=== PATIENT | female | born 1950 | race Caucasian/White ===

== ENCOUNTER 2018-11-10 12:48 | Emergency (ER) | payer OTHER, MEDICARE, MEDICAID ==
[2018-11-10 13:06] VITALS: BP 124/39; PULSE 75
--- NOTE | 2018-11-10 13:22 | EDM.PDOC ---
ED HPI GENERAL MEDICAL PROBLEM - General Chief Complaint: Flank Pain Stated Complaint: RT SIDE RIB PAIN Time Seen by Provider: 11/10/18 13:17 Source of Information: Reports: Patient History Limitations: Reports: No Limitations - History of Present Illness INITIAL COMMENTS - FREE TEXT/NARRATIVE: pt was vacuming a car and twisted into a position and she developed acute pain in her rt rib cage area. Onset: Other (yesterday. the pt was vacuuing a car out and heard something pop in her rib cage. ) Duration: Hour(s): Location: Reports: Chest, Other (pt has pain in her rt ant chest. ) Associated Symptoms: Reports: Chest Pain, Other (pain when she moves and deep breathes. ) Right Pain Score (Numeric/FACES): 6 - Related Data Allergies Allergy/AdvReac Type Severity Reaction Status Date / Time Iodinated Contrast Media Allergy Anaphylactic Verified 11/10/18 13:18 [Iodinated Contrast Media - Shock IV Dye] pentazocine lactate Allergy Rash Verified 11/10/18 13:18 [From [place]win] Tetracyclines Allergy Difficulty Verified 11/10/18 13:18 Breathing Home Meds: Home Meds FLUoxetine HCl [Prozac] 40 mg PO BID 05/29/15 [History] Vitamin B Complex [Complex B-100] 1 tab PO DAILY 05/29/15 [History] Loratadine [Claritin] 10 mg PO DAILY 11/10/18 [History] Multivit with Calcium,Iron,Min [Essential Daily] 1 tab PO DAILY 11/10/18 [ History] 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: Musculoskeletal History: Reports: Back Pain, Chronic Neurological History: Reports: Migraines - Past Surgical History GI Surgical History: Reports: Appendectomy, Bariatric Procedure Female Surgical History: Reports: Breast Biopsy, Hysterectomy Musculoskeletal Surgical History: Reports: Carpal Tunnel ED ROS GENERAL - Review of Systems Review Of Systems: See Below Constitutional: Reports: No Symptoms HEENT: Reports: No Symptoms Respiratory: Reports: Pleuritic Chest Pain Cardiovascular: Reports: No Symptoms Endocrine: Reports: No Symptoms GI/Abdominal: Reports: No Symptoms : Reports: No Symptoms Musculoskeletal: Reports: Other (pain in rt ant rib cage. ) Skin: Reports: No Symptoms ED EXAM,LOWER BACK PAIN/INJURY - Physical Exam Exam: See Below Text/Narrative:: pt arrived with pain in her ant rt rib cage at the level of the 6th or 7th rib. Exam Limited By: No Limitations General Appearance: Alert, Anxious, Moderate Distress Ears: Normal TMs Nose: Normal Inspection Throat/Mouth: Normal Inspection Head: Atraumatic Neck: Normal Inspection Respiratory/Chest: Other (pt has pain with deep breathing. She is tender to palpate the mid ant chest on the rt. ) Cardiovascular: Regular Rate, Rhythm GI/Abdominal: Soft, Non-Tender (Female) Exam: Deferred Rectal (Female) Exam: Deferred Back Exam: Normal Inspection Extremities: Normal Inspection Neurological: Alert, Oriented x 3 Course - Vital Signs Last Recorded V/S: Last Vital Signs Temp 35.6 C 11/10/18 13:16 Pulse 75 11/10/18 13:16 Resp 13 11/10/18 13:16 BP 124/39 L 11/10/18 13:16 Pulse Ox 95 11/10/18 13:16 - Orders/Labs/Meds Orders: Active Orders 24 hr Category Date Time Status Ribs 2V w Chest Rt [CR] Stat Exams 11/10/18 13:33 Taken Meds: Medications Discontinued Medications Generic Name Dose Route Start Last Admin Trade Name Freq PRN Reason Stop Dose Admin Hydrocodone Bitart/Acetaminophen 1 tab 11/10/18 13:35 11/10/18 14:00 [place] 325-5 Mg PO 11/10/18 13:36 1 tab ONETIME ONE Administration Ketorolac Tromethamine 60 mg 11/10/18 13:35 Toradol IM 11/10/18 13:36 ONETIME ONE - Re-Assessments/Exams Free Text/Narrative Re-Assessment/Exam: 11/10/18 13:55 chest xray and rib detail was obtained which shows a possible hairline fracture of the 6th rib-- no displacement. Departure - Departure Time of Disposition: 13:56 Disposition: Home, Self-Care 01 Condition: Fair Clinical Impression: Rib fracture - Discharge Information Referrals: Kathleen Paz MD [Primary Care Provider] - Forms: ED Department Discharge Care Plan Goals: cool pack to area, motrin 600mg tid, norco 5/325 q6h prn for pain--severe,#10 encourage deep breathing avoid heavy lifting or pulling. - My Orders Last 24 Hours: My Active Orders 11/10/18 13:33 Ribs 2V w Chest Rt [CR] Stat - Assessment/Plan Last 24 Hours: My Active Orders 11/10/18 13:33 Ribs 2V w Chest Rt [CR] Stat
[2018-11-10] MEDS ORDERED: Ketorolac 60 MG/2 ML SDV IM ONE (13:35)
[2018-11-10] MEDS ORDERED: Acetaminophen/HYDROcodone 325-5 MG Tab PO ONE (13:35)
--- NOTE | 2018-11-10 14:07 | CRLCR ---
Indication: Pain in right anterior ribs. Technique: A PA view of the chest was obtained. Two views of the right ribs were obtained. Comparison: None Findings: Heart is normal in size. The lungs are clear. No infiltrate, pleural effusion, or pneumothorax is identified. No displaced right rib fractures are identified. Impression: No displaced right rib fractures. Dictated by Carmita Vela MD @ Nov 10 2018 2:05PM Signed by Dr. aCrmita Vela @ Nov 10 2018 2:06PM
== END 2018-11-10 14:07 | disposition home or self-care (01) ==
LOC: JP.ED 12:48
DX: S22.31XA Fracture of one rib, right side, initial encounter for closed fracture (principal); Z88.1 Allergy status to other antibiotic agents; Z88.8 Allergy status to other drugs, medicaments and biological substances; Z91.041 Radiographic dye allergy status; Z79.899 Other long term (current) drug therapy; X50.1XXA Overexertion from prolonged static or awkward postures, initial encounter
CPT/HCPCS: 71101; 96372; 99284; A9270; J1885; 99283

== ENCOUNTER 2019-04-04 17:22 | Emergency (ER) | payer MEDICARE, MEDICAID ==
[2019-04-04 18:15] VITALS: BP 113/56; PULSE 71
[2019-04-04] MEDS ORDERED: methylPREDNISolone Sodium Succinate 125 MG/2 ML SDV IM ONE (18:52)
[2019-04-04] MEDS ORDERED: HYDROmorphone 1 MG/ML Syringe IM ONE (18:52)
--- NOTE | 2019-04-04 18:56 | EDM.PDOC ---
ED HPI GENERAL MEDICAL PROBLEM - General Chief Complaint: Headache Stated Complaint: MIGRAINE Time Seen by Provider: 04/04/19 18:45 Source of Information: Reports: Patient History Limitations: Reports: No Limitations - History of Present Illness INITIAL COMMENTS - FREE TEXT/NARRATIVE: 68-year-old female who has chronic back neck and headache problems since an accident years ago is scheduled for ablation of cervical nerves in 2 weeks but today saw some scotoma-like lights and then developed a frontal headache. She is taking her prescribed medications but it is not breaking the headache. She received a Toradol injection last week at the clinic which provided her minimal if any relief. She was told to come to the emergency room for "something stronger". Mild nausea but no vomiting, no neurologic deficits. Onset: Unknown/Unsure Duration: Week(s): (Off and on for weeks) Location: Reports: Head (Frontal, bilateral) Associated Symptoms: Reports: Malaise, Other (Nausea but no vomiting) Headache Pain Score (Numeric/FACES): 9 - Related Data Allergies Allergy/AdvReac Type Severity Reaction Status Date / Time Iodinated Contrast Media Allergy Anaphylactic Verified 04/04/19 18:31 [Iodinated Contrast Media - Shock IV Dye] pentazocine lactate Allergy Rash Verified 04/04/19 18:31 [From [place]] Tetracyclines Allergy Difficulty Verified 04/04/19 18:31 Breathing Home Meds: Home Meds FLUoxetine HCl [Prozac] 40 mg PO BID 05/29/15 [History] Vitamin B Complex [Complex B-100] 1 tab PO DAILY 05/29/15 [History] Loratadine [Claritin] 10 mg PO DAILY 11/10/18 [History] Multivit with Calcium,Iron,Min [Essential Daily] 1 tab PO DAILY 11/10/18 [ History] Cholecalciferol (Vitamin D3) [Vitamin D3] 4,000 unit PO BEDTIME 04/04/19 [ History] methocarbamoL [Robaxin] 500 mg PO TID PRN 04/04/19 [History] oxyCODONE HCl/Acetaminophen [Percocet 5-325 mg Tablet] 1 tab PO Q4H PRN [History] tiZANidine [Zanaflex] 2 mg PO BID PRN 04/04/19 [History] Past Medical History HEENT History: Reports: Impaired Vision Gastrointestinal History: Reports: None Genitourinary History: Reports: None 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: Musculoskeletal History: Reports: Back Pain, Chronic Neurological History: Reports: Migraines Psychiatric History: Reports: Anxiety, Dementia, PTSD Hematologic History: Reports: B12 Deficiency, Blood Transfusion(s) - Infectious Disease History Infectious Disease History: Reports: Chicken Pox, Measles, Mumps - Past Surgical History Head Surgeries/Procedures: Reports: None HEENT Surgical History: Reports: Tonsillectomy GI Surgical History: Reports: Appendectomy, Bariatric Procedure Female Surgical History: Reports: Breast Biopsy, Hysterectomy Musculoskeletal Surgical History: Reports: Carpal Tunnel Social & Family History - Tobacco Use Smoking Status *Q: Current Every Day Smoker Years of Tobacco use: 40 Packs/Tins Daily: 0.5 - Caffeine Use Caffeine Use: Reports: Coffee - Recreational Drug Use Recreational Drug Use: No ED ROS GENERAL - Review of Systems Review Of Systems: See Below Constitutional: Reports: Malaise. Denies: Fever, Chills Respiratory: Denies: No Symptoms, Shortness of Breath Cardiovascular: Denies: Chest Pain GI/Abdominal: Reports: Nausea. Denies: Vomiting Skin: Reports: No Symptoms Neurological: Reports: Headache. Denies: Dizziness, Paresthesia Psychiatric: Reports: No Symptoms - Physical Exam Exam: See Below Exam Limited By: No Limitations General Appearance: Alert, Mild Distress (Looks uncomfortable, photophobic) Eye Exam: Bilateral Eye: Normal Inspection Head Exam: Atraumatic Respiratory/Chest: No Respiratory Distress Neuro Exam (Abbreviated): Alert, Oriented, No Motor/Sensory Deficits Skin Exam: Warm, Dry Course - Vital Signs Last Recorded V/S: Last Vital Signs Temp 98.9 F 04/04/19 18:35 Pulse 71 04/04/19 18:35 Resp 17 04/04/19 18:35 BP 113/56 L 04/04/19 18:35 Pulse Ox 94 L 04/04/19 18:35 - Orders/Labs/Meds Meds: Medications Discontinued Medications Generic Name Dose Route Start Last Admin Trade Name Freq PRN Reason Stop Dose Admin Hydromorphone HCl 1 mg 04/04/19 18:52 04/04/19 18:59 Dilaudid IM 04/04/19 18:53 1 mg ONETIME ONE Administration Methylprednisolone Sodium Succinate 125 mg 04/04/19 18:52 02/14/20 18:59 Solu-Medrol IM 04/04/19 18:53 125 mg ONETIME ONE Administration - Re-Assessments/Exams Free Text/Narrative Re-Assessment/Exam: 04/04/19 18:55 After discussing options, patient will be given 1 injection of Solu-Medrol 125 mg IM along with 1 mg of IM Dilaudid. She can rest tonight and recheck in the next few days if not improving satisfactorily, while continuing her regular medications. Departure - Departure Time of Disposition: 19:07 Disposition: Home, Self-Care 01 Clinical Impression: Migraine - Discharge Information Instructions: Migraine Headache, [id number] Referrals: Dorcas Blanco MD [Primary Care Provider] - Forms: ED Department Discharge Care Plan Goals: Rest tonight, continue your regular medications and consider rechecking in the next 2 to 3 days if not improving satisfactorily. Sepsis Event Note - Evaluation Sepsis Screening Result: No Definite Risk - Focused Exam Vital Signs: Vital Signs Temp Pulse Resp BP Pulse Ox 04/04/19 18:35 98.9 F 71 17 113/56 L 94 L 04/04/19 18:14 98.9 F 71 17 113/56 L 94 L Date Exam was Performed: 04/04/19 Time Exam was Performed: 19:53
== END 2019-04-04 19:07 | disposition home or self-care (01) ==
LOC: JP.ED 17:22
DX: G43.909 Migraine, unspecified, not intractable, without status migrainosus (principal); F41.9 Anxiety disorder, unspecified; F17.210 Nicotine dependence, cigarettes, uncomplicated; Z91.041 Radiographic dye allergy status; Z88.8 Allergy status to other drugs, medicaments and biological substances; Z88.1 Allergy status to other antibiotic agents; Z79.899 Other long term (current) drug therapy
CPT/HCPCS: 96372; 99283; 99284; J1170; J2930

== ENCOUNTER 2019-07-08 06:35 | Day surgery (SDC) | payer MEDICARE, MEDICAID ==
[2019-07-08] MEDS ORDERED: Sodium Chloride 0.9% 1,000 ML IV SCH (07:00)
[2019-07-08] MEDS ORDERED: Midazolam 1 MG/ML 2 ML SDV ONE (07:14)
[2019-07-08] MEDS ORDERED: fentaNYL 100 MCG/2 ML SDV ONE (07:14)
[2019-07-08] MEDS ORDERED: Propofol 200 MG/20 ML SDV ONE (07:15)
[2019-07-08 09:39] VITALS: BP 113/56; PULSE 65
--- NOTE | 2019-07-08 11:23 | OR ---
DATE OF PROCEDURE: 07/08/2019 SURGEON: Seamus Goldsmith MD PROCEDURE: Colonoscopy. FINDINGS: Normal colonoscopy. PREOPERATIVE DIAGNOSIS: Screening colonoscopy. POSTOPERATIVE DIAGNOSIS: Screening colonoscopy. RISKS: Risks, benefits, alternatives, and limitations including, but not limited to, infection, bleeding, and perforation were explained to the patient, and they wished to proceed. PROCEDURE IN DETAIL: The patient was placed in left lateral decubitus position. Digital rectal exam was performed, which showed mild external hemorrhoids. The scope was introduced and advanced atraumatically to the ileocecal valve. The scope was brought back through the ascending, transverse, descending colon, and retroflexed. No evidence of old or new blood. No masses. No polyps. No diverticulosis. No abnormalities on retroflex. The patient tolerated the procedure well. Seamus Goldsmith MD /[id number]
== END 2019-07-08 09:45 | disposition home or self-care (01) ==
LOC: JP.SDS 06:35
PROVIDERS: ATTEND Surgery
DX: Z12.11 Encounter for screening for malignant neoplasm of colon (principal); K64.4 Residual hemorrhoidal skin tags; Z98.84 Bariatric surgery status; Z87.19 Personal history of other diseases of the digestive system
CPT/HCPCS: G0121; J2250; J2704; J3010; J7030

== ENCOUNTER 2020-02-27 16:36 | Emergency (ER) | payer MEDICARE, MEDICAID ==
[2020-02-27 17:02] VITALS: BP 105/39; PULSE 66
--- NOTE | 2020-02-27 17:31 | EDM.PDOC ---
<Issac Guzman - Last Filed: 02/27/20 17:26> ED HPI GENERAL MEDICAL PROBLEM - General Chief Complaint: Lower Extremity Injury/Pain Stated Complaint: HIT HEAD Time Seen by Provider: 02/27/20 17:25 Source of Information: Reports: Patient History Limitations: Reports: No Limitations - History of Present Illness INITIAL COMMENTS - FREE TEXT/NARRATIVE: 69-year-old female was on a ladder when she stumbled and fell backwards about 4 feet when the ladder collapsed underneath her. She landed on a concrete floor on top of the ladder near her shoulders and neck and head. She hit her head fairly hard on the floor but did not lose consciousness. She has significant head, neck, upper back, left knee pain and also an abrasion on her left forearm. She is struggling with persistent dizziness but no visual disturbance. Her friend who was with her said as hard as she fell she wanted her checked out. She has had neck surgery in the past but has no metal in her neck. She has no peripheral paresthesias or weakness, no nausea or vomiting. She just "hurts all over". The fall was 3 hours ago. She is able to bear weight on the left leg but has to "hobble". Onset: Sudden Duration: Hour(s): (3 hours ago) Location: Reports: Head, Neck, Back, Lower Extremity, Left Quality: Reports: Ache, Stabbing Worsens with: Reports: Other (Weightbearing on the left leg increases her knee pain), Movement Associated Symptoms: Reports: Headaches, Other (Dizziness) Generalized Pain Score (Numeric/FACES): 9 - Related Data Allergies Allergy/AdvReac Type Severity Reaction Status Date / Time adhesive tape Allergy Rash Verified 02/27/20 17:07 Iodinated Contrast Media Allergy Anaphylactic Verified 02/27/20 17:07 [Iodinated Contrast Media - Shock IV Dye] pentazocine Allergy Rash Verified 02/27/20 17:07 pentazocine lactate Allergy Rash Verified 02/27/20 17:07 [From [place]] shellfish derived Allergy Cannot Verified 02/27/20 17:07 Remember Tetracyclines Allergy Difficulty Verified 02/27/20 17:07 Breathing triple Dye Allergy Anaphylactic Uncoded 07/08/19 06:52 Shock Home Meds: Home Meds FLUoxetine HCl [Prozac] 40 mg PO BID 05/29/15 [History] Vitamin B Complex [Complex B-100] 1 tab PO DAILY 05/29/15 [History] Loratadine [Claritin] 10 mg PO DAILY 11/10/18 [History] Multivit with Calcium,Iron,Min [Essential Daily] 1 tab PO DAILY 11/10/18 [History] tiZANidine [Zanaflex] 4 mg PO Q6H PRN 04/04/19 [History] Cyanocobalamin (Vitamin B-12) [Vitamin B-12] 5,000 mcg PO DAILY 07/07/19 [History] Ergocalciferol (Vitamin D2) [Ergocalciferol] 5,000 mcg PO BEDTIME 07/07/19 [History] Fluticasone Propionate [Flovent] 2 spray SEVEN DAILY 07/07/19 [History] methocarbamoL [Robaxin] 750 mg PO BID PRN 07/08/19 [History] methylPREDNISolone [Methylprednisolone] 4 mg PO ASDIRECTED 02/27/20 [History] Past Medical History HEENT History: Reports: Allergic Rhinitis, Impaired Vision Respiratory History: Reports: Sleep Apnea Gastrointestinal History: Reports: None Genitourinary History: Reports: Neurogenic Bladder 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: Musculoskeletal History: Reports: Back Pain, Chronic Neurological History: Reports: Migraines Psychiatric History: Reports: Anxiety, Depression, PTSD Hematologic History: Reports: B12 Deficiency, Blood Transfusion(s) - Infectious Disease History Infectious Disease History: Reports: Chicken Pox, Measles, Mumps - Past Surgical History Head Surgeries/Procedures: Reports: None HEENT Surgical History: Reports: Oral Surgery, Tonsillectomy GI Surgical History: Reports: Appendectomy, Bariatric Procedure, Colonoscopy, EGD, Esophageal Dilatation Female Surgical History: Reports: Breast Biopsy, Hysterectomy Neurological Surgical History: Reports: C-Spine, Laminectomy Musculoskeletal Surgical History: Reports: Carpal Tunnel Social & Family History - Tobacco Use Tobacco Use Status *Q: Heavy Tobacco User Years of Tobacco use: 40 Packs/Tins Daily: 1 - Caffeine Use Caffeine Use: Reports: Coffee - Recreational Drug Use Recreational Drug Use: No Review of Systems - Review of Systems Review Of Systems: See Below Constitutional: Denies: Fever Eyes: Denies: Vision Change Ears: Reports: Dizziness Mouth/Throat: Reports: Other (Hit her lips on the shelf when she started falling but there is no objective swelling or trauma) Respiratory: Reports: Pleuritic Chest Pain (Some pain with deep breath in the back). Denies: Shortness of Breath Cardiovascular: Denies: Chest Pain GI/Abdominal: Denies: Abdominal Pain, Nausea, Vomiting Musculoskeletal: Reports: Neck Pain, Leg Pain (Left knee) Skin: Reports: Bruising (Small abrasion on the left elbow, no other bruising or abrasions) Neurological: Reports: Dizziness, Headache, Difficulty Walking (Due to left knee pain) Psychiatric: Reports: No Symptoms ED EXAM, GENERAL - Physical Exam Exam: See Below Exam Limited By: No Limitations General Appearance: Alert, No Apparent Distress (Looks uncomfortable but not distressed) Eye Exam: Bilateral Eye: EOMI, PERRL Throat/Mouth: Other (No acute traumatic findings of the dental exam, no mucosal injury seen of the upper or lower lip. Mandible is nontender) Head: Other (She is tender to palpation over the occiput of the scalp but there is no significant hematoma or abrasions seen) Neck: Other (Neck is somewhat difficult to examine because any palpation bilaterally or percussion of the neck and upper spine causes her to wince and experience discomfort) Respiratory/Chest: No Respiratory Distress, Lungs Clear Cardiovascular: Regular Rate, Rhythm GI/Abdominal: Soft, Non-Tender Extremities: Other (Tender to palpation over the medial aspect of the left knee and patella area, with slight swelling but no bruising or abrasion, no erythema. Increased pain with valgus stress to the knee) Neurological: Alert, Oriented, No Motor/Sensory Deficits Psychiatric: Normal Affect, Normal Mood Skin Exam: Warm, Dry, Other (Only objective skin finding is a small abrasion on the left forearm extensor surface) Course - Re-Assessments/Exams Free Text/Narrative Re-Assessment/Exam: 02/27/20 17:32 CT of the head and neck was ordered without contrast, along with a left knee x- ray. I do not suspect any significant findings despite the patient's symptoms. Care will be turned over to Dr. Staley pending results of the CT scans. Departure - Departure Disposition: Home, Self-Care 01 Clinical Impression: C5 cervical fracture Qualifiers: Encounter type: initial encounter Fracture type: closed Fracture morphology: unspecified fracture morphology Fracture alignment: nondisplaced Qualified Code(s): S12.401A - Unspecified nondisplaced fracture of fifth cervical vertebra, initial encounter for closed fracture C6 cervical fracture Qualifiers: Encounter type: initial encounter Fracture type: closed Fracture morphology: unspecified fracture morphology Fracture alignment: nondisplaced Qualified Code(s): S12.501A - Unspecified nondisplaced fracture of sixth cervical vertebra, initial encounter for closed fracture Clinical Impression: (Ruled Out): Closed cervical spine fracture - Discharge Information Instructions: Cervical Spine Fracture, Stable Referrals: Dorcas Blanco MD [Primary Care Provider] - Forms: ED Department Discharge Additional Instructions: Wear your soft cervical collar for support/protection. Take either acetaminophen OR Cameron for pain relief. Recheck with your provider early next week to see how you are doing, see if you need more pain medication, and see if a referral will be required to see a specialist. Sepsis Event Note (ED) - Evaluation Sepsis Screening Result: No Definite Risk <Jonn Staley - Last Filed: 02/27/20 20:02> Course - Vital Signs Last Recorded V/S: Last Vital Signs Temp 36.3 C 02/27/20 17:06 Pulse 66 02/27/20 17:06 Resp 16 02/27/20 17:06 BP 105/39 L 02/27/20 17:06 Pulse Ox 96 02/27/20 17:06 - Orders/Labs/Meds Orders: Active Orders 24 hr Category Date Time Status Knee 3V Lt [CR] Stat Exams 02/27/20 17:33 Taken Meds: Medications Discontinued Medications Generic Name Dose Route Start Last Admin Trade Name Rene PRN Reason Stop Dose Admin Acetaminophen 1,000 mg 02/27/20 18:45 02/27/20 18:53 Tylenol Extra Strength PO 02/27/20 18:46 1,000 mg ONETIME ONE Administration Acetaminophen Confirm 02/27/20 18:55 Tylenol Extra Strength Administered 02/27/20 18:56 Dose 500 mg .ROUTE .STK-MED ONE Ketorolac Tromethamine 30 mg 02/27/20 18:46 02/27/20 18:53 Toradol IM 02/27/20 18:47 30 mg ONETIME ONE Administration - Radiology Interpretation Free Text/Narrative:: Knee X-ray- neg C spine CT-C5 spinous process fx, C6 superior articulating facet non-displaced fx, C5 right lamina fx Head CT-neg CT Results Date: 01/08/21 CT Results Time: 19:55 Departure - Departure Time of Disposition: 20:15 Condition: Fair - Discharge Information *PRESCRIPTION DRUG MONITORING PROGRAM REVIEWED*: Not Applicable *COPY OF PRESCRIPTION DRUG MONITORING REPORT IN PATIENT JADEN: Not Applicable Sepsis Event Note (ED) - Focused Exam Vital Signs: Vital Signs Temp Pulse Resp BP Pulse Ox 02/27/20 17:06 36.3 C 66 16 105/39 L 96 02/27/20 17:01 36.3 C 66 16 105/39 L 96
[2020-02-27] MEDS ORDERED: Acetaminophen 500 MG Tab PO ONE (18:45)
[2020-02-27] MEDS ORDERED: Ketorolac 30 MG/ML SDV IM ONE (18:46)
[2020-02-27] MEDS ORDERED: Acetaminophen 500 MG Tab ONE (18:55)
--- NOTE | 2020-02-27 19:02 | CRLCT ---
INDICATION: Fall. Head injury. Dizziness TECHNIQUE: CT head without contrast. COMPARISON: 07/13/2015 FINDINGS: There is age-related cortical atrophy. The ventricles are within normal limits for the patient`s age. There is no mass effect or midline shift. There is no loss of barboza-white differentiation. There is no evidence of an acute extra-axial hemorrhage. Few apparent punctate parenchymal densities are at least partially related to artifact. No acute calvarial fracture is seen. There is mild superior scalp soft tissue swelling at the vertex. The visualized paranasal sinuses and mastoid air cells are clear. The visualized orbits are within normal limits. IMPRESSION: No evidence of an acute extra-axial hemorrhage, mass effect or loss of barboza-white differentiation. Few apparent punctate parenchymal densities are at least partially related to artifact. If there is clinical concern, a short-term follow-up study can be obtained. Dictated by Tao Wang MD @ 02/27/2020 6:59:42 PM Please note that all CT scans at this facility use dose modulation, iterative reconstruction, and/or weight-based dosing when appropriate to reduce radiation dose to as low as reasonably achievable. Dictated by: Tao Wang MD @ 02/27/2020 18:59:57 (Electronically Signed)
--- NOTE | 2020-02-27 19:47 | CRLCT ---
INDICATION: Fall TECHNIQUE: CT cervical spine without contrast. COMPARISON: An MRI dated 03/15/2016 FINDINGS: There is straightening of the cervical lordosis. Slight anterolisthesis of C3 on C4 is probably degenerative. Again noted is near complete fusion of the C5 and C6 vertebral bodies. The craniocervical and atlantoaxial alignments are near anatomical. There is a nondisplaced fracture involving the right C6 superior articulating facet, traversing the partially fused right C5-6 facet joint into the right C5 lamina and spinous process. There is a small lucency and focal cortical irregularity at the left anterior aspect of the C6 superior endplate region on image 64 of series 3. An apparent thin vertical lucency in the left C7 inferior articulating facet on image 40 of series 9 is not seen on adjacent images or the axial and coronal reformats, presumably artifactual. There is no significant precervical soft tissue swelling. Degenerative changes are seen. IMPRESSION: A nondisplaced fracture involving the right C6 superior articulating facet, right C5 lamina and C5 spinous process. A small subcortical lucency at the left anterior C6 superior endplate could represent a small nondisplaced fracture. Dictated by Tao Wang MD @ 02/27/2020 7:43:46 PM Please note that all CT scans at this facility use dose modulation, iterative reconstruction, and/or weight-based dosing when appropriate to reduce radiation dose to as low as reasonably achievable. Dictated by: Tao Wang MD @ 02/27/2020 19:45:26 (Electronically Signed)
--- NOTE | 2020-03-01 09:21 | CR ---
Knee 3V Lt CLINICAL HISTORY: Pain FINDINGS: No acute fracture or dislocation is noted. There are no osseous lesions. There is mild joint space narrowing in the medial compartment. There is mild patellar spurring. Fullness in the suprapatellar bursa suggests joint effusion. Impression: Mild osteoarthritic change Joint effusion
== END 2020-02-27 20:48 | disposition home or self-care (01) ==
LOC: JP.ED 16:36
DX: S12.401A Unspecified nondisplaced fracture of fifth cervical vertebra, initial encounter for closed fracture (principal); S12.501A Unspecified nondisplaced fracture of sixth cervical vertebra, initial encounter for closed fracture; S50.812A Abrasion of left forearm, initial encounter; F17.210 Nicotine dependence, cigarettes, uncomplicated; Z91.048 Other nonmedicinal substance allergy status; Z91.040 Latex allergy status; Z91.041 Radiographic dye allergy status; Z91.013 Allergy to seafood; Z88.1 Allergy status to other antibiotic agents; Z88.8 Allergy status to other drugs, medicaments and biological substances; Z79.899 Other long term (current) drug therapy; W11.XXXA Fall on and from ladder, initial encounter
CPT/HCPCS: 70450; 72125; 73562-26-LT; 73562-LT; 96372; 99283; 99284-25; A9270-GY; J1885

== ENCOUNTER → 2021-11-29 | Day surgery (SDC) | payer MEDICARE, MEDICAID ==
[~2021-11-29] MED LIST: Propofol 200 MG/20 ML SDV ONE; fentaNYL 100 MCG/2 ML SDV ONE
[2021-11-29] MEDS: Lactated Ringers 1,000 ML IV SCH (07:00)
== END ==
LOC: JP.SDS 06:00
PROVIDERS: ATTEND Family Medicine
DX: D50.9 Iron deficiency anemia, unspecified (principal); K29.70 Gastritis, unspecified, without bleeding; F17.210 Nicotine dependence, cigarettes, uncomplicated; G47.33 Obstructive sleep apnea (adult) (pediatric); K21.9 Gastro-esophageal reflux disease without esophagitis; Z98.84 Bariatric surgery status; Z20.822 Contact with and (suspected) exposure to COVID-19
CPT/HCPCS: 43239; 45378; 87081; J2704; J3010; J7120

== ENCOUNTER 2023-11-18 21:30 | Emergency (ER) | payer OTHER, MEDICARE, MEDICAID ==
[2023-11-18] MEDS: Iopamidol 612 MG/ML 100 ML Bottle IV STA (22:25)
[2023-11-18] MEDS: Sodium Chloride 0.9% 10 ML Syringe FLUSH STA (22:25)
[2023-11-18] MEDS: Sodium Chloride 0.9% 80 ML IV STA (22:25)
[2023-11-18 22:27] LABS: BASOPHILS ABSOLUTE AUTO 0.03 K/uL (0.00-0.10); BASOPHILS PERCENT AUTO 0.4 % (0.1-1.3); EOSINOPHILS ABSOLUTE AUTO 0.16 K/uL (0.00-0.40); EOSINOPHILS PERCENT AUTO 2.2 % (0.0-5.4); HEMATOCRIT 37.9 % (34.3-46.0); HEMOGLOBIN 13.1 g/dL (11.2-15.5); IMMATURE GRAN PERCENT AUTO 0.1 % (0.0-0.7); LYMPHOCYTES PERCENT AUTO 29.3 % (11.4-47.7); MEAN CORPUSCULAR HEMOGLOBIN 32.1 pg (31.6-35.5); MEAN CORPUSCULAR HGB CONC 34.6 g/dL (31.6-35.5); MEAN CORPUSCULAR VOLUME 92.9 fL (81.4-99.0); MONOCYTES ABSOLUTE AUTO 0.74 K/uL (0.20-0.90); MONOCYTES PERCENT AUTO 10.3 % (3.3-12.6); NEUTROPHILS ABSOLUTE AUTO 4.12 K/uL (1.0-7.6); NEUTROPHILS PERCENT AUTO 57.7 % (40.0-78.1); PLATELET COUNT,PLT 301 K/uL (130-375); RED BLOOD CELL COUNT 4.08 M/uL (3.77-5.24); WHITE BLOOD CELL COUNT,WBC 7.2 K/uL (3.2-11.0)
[2023-11-18 22:28] LABS: IMMATURE GRAN ABSOLUTE AUTO 0.01 K/uL (0.00-0.23)
[2023-11-18] MEDS: Ketorolac 30 MG/ML SDV IVPUSH ONE (22:34)
[2023-11-18 22:43] LABS: ANION GAP 5.4 mmol/L (5.0-14.0); CALCIUM 9.2 mg/dL (8.5-10.1); CREATININE 0.9 mg/dL (0.6-1.0); EST CRCL DRUG DOSING (CG) 49.35 mL/min
[2023-11-18 23:32] VITALS: BP 122/44; PULSE 58
== END 2023-11-18 23:30 | disposition home or self-care (01) ==
LOC: JP.ED 21:30
DX: M54.2 Cervicalgia (principal); M54.50 Low back pain, unspecified; R07.9 Chest pain, unspecified; R51.9 Headache, unspecified; V40.1XXA Car passenger injured in collision with pedestrian or animal in nontraffic accident, initial encounter
CPT/HCPCS: 36415; 70450; 71260; 72125; 74177; 76377; 80048; 84484; 85025; 93005; 96374; 99285; J1885; J3490; Q9967